=== PATIENT | female | born 1950 | race African-American/Black ===

== ENCOUNTER 2018-05-13 15:01 | Emergency (ER) | payer MEDICAID, MEDICARE ==
[~2018-05-13] VITALS: Ht 170.2 cm; Wt 61.2 kg
[~2018-05-13 15:01] MED LIST: DIFLUCAN150 MG PO; FLAGYL500 MG ORAL; GLIPIZIDE-METF1 EAC2 PO; VIBRAMYCIN100 MG ORAL; ZESTORETIC 20-1 EAC1 PO
[2018-05-13 15:05] VITALS: BP 134/72
[2018-05-13] MEDS ORDERED: ATORVASTATIN CA20 MG ORAL (15:07)
[2018-05-13] MEDS ORDERED: METFORMIN HCL500 M1 ORAL (15:07)
--- NOTE | 2018-05-13 15:10 | NUR ---
ED Nurse Note: PAtient walked into Ed c/o vaginal itchiness. patient reports whitish discharge for 4 days. patient is alert awake x4 ambulatory,
--- NOTE | 2018-05-13 15:18 | Emergency Room Report ---
History of Present Illness General Chief Complaint: Female Urogenital Problems Source: Medical Record Present Illness HPI 67-year-old female patient presents the ER complaining of dysuria and vaginal discharge. Reports symptoms have been present for a week. States she does not know if she has any pelvic rash or lesions. Reports that she does not know the color of the discharge. Reports is in a sexually monogamous relationship with one partner, denies concern for STI. Denies fever, chest pain, shortness of breath, vomiting. Denies flank pain. Denies abdominal pain. Denies hematuria. Denies other aggravating or relieving factors. Allergies: Coded Allergies: IODINE (Verified Allergy, Unknown, 05/02/15) Patient History Past Medical History: see triage record Last Menstrual Period: menopause Reviewed Nursing Documentation: PMH: Agreed; PSxH: Agreed Nursing Documentation-PMH Past Medical History: No History, Except For Hx Cardiac Problems: No Hx Hypertension: Yes Hx Pacemaker: No Hx Asthma: No Hx COPD: No Hx Diabetes: Yes Hx Cancer: No Hx Gastrointestinal Problems: No Hx Dialysis: No Hx Neurological Problems: No Hx Cerebrovascular Accident: No Hx Seizures: No Review of Systems All Other Systems: negative except mentioned in HPI Physical Exam Vital Signs Date Time Temp Pulse Resp B/P (MAP) Pulse Ox O2 Delivery O2 Flow Rate FiO2 05/13/18 15:05 98.2 78 18 134/72 98 Room Air Sp02 EP Interpretation: reviewed, normal General Appearance: well appearing, no apparent distress, alert, GCS 15, non- toxic Head: normocephalic, atraumatic Eyes: bilateral eye normal inspection, bilateral eye PERRL ENT: hearing grossly normal, normal pharynx, no angioedema, normal voice, uvula midline, moist mucus membranes Neck: full range of motion Respiratory: lungs clear, normal breath sounds, no rhonchi, no respiratory distress, no accessory muscle use, no wheezing, speaking full sentences Cardiovascular #1: regular rate, rhythm, no edema Gastrointestinal: normal bowel sounds, non tender, soft, no mass, non-distended , no guarding, no rebound, other - Negative Rovsing, negative obturator, negative heel strike Genitourinary: no CVA tenderness, cervix normal, ext genitalia/vag normal, no vertebral tenderness, other - Mild yellow discharge noted in vaginal vault, no white clumpy discharge, no blood Musculoskeletal: back normal, digits/nails normal, gait/station normal, normal range of motion, non-tender Neurologic: alert, oriented x3, responsive, motor strength/tone normal, sensory intact Skin: no rash Medical Decision Making PA Attestation Dr. Galloway is my supervising Physician whom patient management has been discussed with. Diagnostic Impression: Primary Impression: Dysuria Additional Impression: Encounter for assessment of sexually transmitted disease exposure ER Course pt presents to ED c/o dysuria and vaginal discharge. DDX considered but are not limited to cystitis, pyelonephritis, STI, vaginitis, BV, yeast infection. No abdominal TTP, negative obturator, negative Deluna, negative Rovsing, low suspicion for cholecystitis or appendicitis, does not require imaging or labs at this time. VITAL SIGNS are WNL, patient is afebrile. Ordered UA. ER COURSE Pelvic exam performed with female chlorinator operator present. Sample sent for wet mount. Yellow discharge noted in vaginal canal. No suprapubic or pelvic lesions or rashes, low suspicion for herpes or syphilis. UA results show does not indicate UTI, negative nitrites, no bacteria, low suspicion for UTI. Will provide patient with Pyridium for pain with urination. Wet mount negative, no trichomonas, no yeast, no clue cells, does not indicate bacterial vaginosis. Provided patient with Rocephin and Azithromycin in the ER. Informed patient medications will cover for gonorrhea and chlamydia, needs further follow-up evaluation and possible treatment of other sexual transmitted infections. Advised to use safe sex practices including but not limited to use of condoms. Avoid sexual activity for the next 2 weeks. Instructed patient to follow up with STI clinic and/or PCP for STI evaluation and further treatment as necessary. Provided with contact information for STI clinic. Instructed patient to inform partners of needs for evaluation and treatment of possible infections. Patient is resting comfortably in chair, nontoxic appearing, in no acute distress. Patient states they feel better and is ready to go home. DISCHARGE -Rx provided for Phenazopyridine for pain. Side effect may turn urine orange. Patient is stable for discharge. Patient resting comfortably, in no acute distress, nontoxic appearing, talking without difficulty. Will provide with patient care instructions and any necessary prescriptions. Patient understands and agrees to treatment plan. Patient encouraged to drink plenty of fluids. Patient to take medication as instructed. Care plan and follow-up instructions provided. Patient questions asked and answered. Reports understanding and agreement to treatment plan. Patient instructed to follow-up with primary care provider in 3 - 5 days. ER precautions given. Patient instructed to return to ER immediately for any new or worsening of symptoms. Including but not limited to fever, abdominal pain , intractable vomiting. - Please note that this Emergency Department Report was dictated using [employer] and vine fruit crop farmer technology software, occasionally this can lead to erroneous entry secondary to interpretation by the dictation equipment. Labs Test 05/13/18 15:20 Urine Color Pale yellow Urine Appearance Clear Urine pH 5 (4.5-8.0) Urine Specific [place] 1.010 (1.005-1.035) Urine Protein Negative (NEGATIVE) Urine Glucose (UA) 4+ (NEGATIVE) Urine Ketones Negative (NEGATIVE) Urine Blood Negative (NEGATIVE) Urine Nitrite Negative (NEGATIVE) Urine Bilirubin Negative (NEGATIVE) Urine Urobilinogen Normal MG/DL (0.0-1.0) Urine Leukocyte Esterase 1+ (NEGATIVE) Urine RBC 0 /HPF (0 - 2) Urine WBC 0-2 /HPF (0 - 2) Urine Squamous Epithelial Cells None /LPF (NONE/OCC) Urine Bacteria None /HPF (NONE) Last Vital Signs Date Time Temp Pulse Resp B/P (MAP) Pulse Ox O2 Delivery O2 Flow Rate FiO2 05/13/18 15:05 98.2 78 18 134/72 98 Room Air Status: improved Disposition: HOME, SELF-CARE Condition: Stable Scripts Phenazopyridine Hcl* (PYRIDIUM*) 100 Mg Tablet 100 MG ORAL THREE TIMES A DAY, #25 TAB Prov: Salvador Boyd 05/13/18 Patient Instructions: Dysuria, Sexually Transmitted Disease, [id number] Additional Instructions: Followup with primary care provider and followup with STI clinic for further evaluation and treatment. Alert sexual partners for need for evaluation and treatment. Follow-up with [facility]. Wear condoms during sex. Avoid sexual activity for 2 weeks. Drink plenty of fluids. Patient questions asked and answered. ER precautions given, patient instructed to return to ER immediately for any new or worsening of symptoms. Salvador Boyd May 13, 2018 15:18
[2018-05-13 15:50] LABS: APPEARANCE,URINE CLEAR; BILIRUBIN, URINE NEGATIVE (NEGATIVE); COLOR,URINE PALE YELLOW; GLUCOSE, URINE (UA) 4+ (NEGATIVE); KETONES,URINE NEGATIVE (NEGATIVE); LEUKOCYTE ESTERASE ,URINE 1+ (NEGATIVE); NITRITE,URINE NEGATIVE (NEGATIVE); PH,URINE 5 (4.5-8.0); PROTEIN,URINE NEGATIVE (NEGATIVE); UROBILINOGEN,URINE NORMAL MG/DL (0.0-1.0)
[2018-05-13] MEDS ORDERED: PHENAZOPYRIDIN100 MG ORAL (16:24)
[2018-05-13] MEDS ORDERED: Lidocaine 1% MPF 10mg/ml 5ml INJ ONE (16:30)
[2018-05-13] MEDS ORDERED: Azithromycin 250mg tab ORAL ONE (16:30)
--- NOTE | 2018-05-13 16:38 | NUR ---
ER DISCHARGE NOTE: Patient is cleared to be discharged per ERMD, pt is aox4, on room air, with stable vital signs. pt was given dc and prescription instructions, pt was able to verbalize understanding, pt id band removed without complications. pt is able to ambulate with steady gait. pt took all belongings.
[2018-05-13 16:47] VITALS: BP 134/72
== END 2018-05-13 16:38 | disposition home or self-care (01) ==
LOC: EMR 15:40
DX: R30.0 Dysuria (principal); Z20.2 Contact with and (suspected) exposure to infections with a predominantly sexual mode of transmission; I10 Essential (primary) hypertension; E11.9 Type 2 diabetes mellitus without complications
CPT/HCPCS: 81003; 87210; 96372; 96374; 99284; J0696